=== PATIENT | female | born 1980 | race Caucasian/White ===

== ENCOUNTER 2018-05-08 17:53 | Emergency (ER) | payer SELFPAY ==
--- NOTE | 2018-05-08 19:07 | EDPHY ---
H & P Time Seen by Provider: 05/08/18 18:50 HPI/ROS: CHIEF COMPLAINT: Request for new antidepressant prescription HISTORY OF PRESENT ILLNESS: Patient is a 37-year-old female with a long history of depression who recently moved to [place] approximately 6 weeks ago. When she moved here and she was unable to obtain a new prescription for the and at the present she was was taking call [facility]. She believes she was taking 10 mg. One week ago she ran out of her prescription and was unable to refill it due to cost she lost her drops before moving here and has no insurance at this time. She is requesting a prescription for a generic antidepressant. She has tried Lexapro previously which made her feel flat. She is open to trying other SSRIs. She has no history of suicidal ideation, homicidal ideation or hallucinations. She drinks alcohol 2-3 times per week but does not drink daily. She denies other drug use. She is not . She denies any other significant past medical history. She denies any current SI, HI, hallucinations. REVIEW OF SYSTEMS: Constitutional: No fever, no chills. Eyes: No discharge. ENT: No sore throat. Cardiovascular: No chest pain, no palpitations. Respiratory: No cough, no shortness of breath. Gastrointestinal: No abdominal pain, no vomiting. Genitourinary: No hematuria. Musculoskeletal: No back pain. Skin: No rashes. Neurological: No headache. Smoking Status: Never smoked Physical Exam: General Appearance: Alert and no distress. Eyes: Pupils equal and round no injection. Respiratory: Chest is nontender, lungs are clear to auscultation. Cardiac: regular rate and rhythm. Gastrointestinal: Abdomen is soft and nontender, no masses, bowel sounds normal. Musculoskeletal: Neck is supple and nontender. Extremities have full range of motion and are nontender. Skin: No rashes or lesions. Constitutional: Initial Vital Signs Temperature (C) 37.1 C 05/08/18 17:59 Heart Rate 114 H 05/08/18 17:59 Respiratory Rate 18 05/08/18 17:59 Blood Pressure 122/88 H 05/08/18 17:59 O2 Sat (%) 92 05/08/18 17:59 O2 Delivery Mode Room Air Allergies/Adverse Reactions: No Known Allergies Allergy (Unverified 05/08/18 17:58) Home Medications: Medication Instructions Recorded Sertraline HCl [Zoloft 25mg (*)] 50 mg PO DAILY #30 tab 05/08/18 buPROPion 05/08/18 Medical Decision Making ED Course/Re-evaluation: 37-year-old female here requesting prescription for generic antidepressant. Did offer her full workup including labs, urinalysis and consult with a therapist the patient declined stating she would just like a prescription is generic and outpatient follow-up. We discussed different antidepressants and she would like to try Zoloft. Addition she was referred to outpatient primary care. All her questions were answered. Departure - Departure Disposition: Home, Routine, Self-Care Clinical Impression: Depression Condition: Good Instructions: Depression (ED) Additional Instructions: You may start Zoloft and this evening. Take daily as instructed. Follow up with the primary care physician yet been referred to for further medication refills. Return to the ER for other worrisome symptoms. Referrals: NONE *PRIMARY CARE P,. [Primary Care Provider] - As per Instructions Miriam Henderson MD [Medical Doctor] - As per Instructions Prescriptions: Sertraline HCl [Zoloft 25mg (*)] 50 mg PO DAILY #30 tab
[2018-05-08 19:23] VITALS: BP 109/80
== END 2018-05-08 19:24 | disposition home or self-care (01) ==
DX: F32.9 Major depressive disorder, single episode, unspecified (principal)

== ENCOUNTER 2018-06-24 20:50 | Emergency (ER) | payer OTHER ==
[2018-06-24 20:55] VITALS: BP 144/85
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
== END 2018-06-24 20:59 ==
DX: Z04.1 Encounter for examination and observation following transport accident (principal); V89.2XXA Person injured in unspecified motor-vehicle accident, traffic, initial encounter; Y93.9 Activity, unspecified; Y92.9 Unspecified place or not applicable